=== PATIENT | female | born 1955 | race Asian ===

== ENCOUNTER → 2020-07-16 | Outpatient (CLI) | payer OTHER ==
[~2020-07-16] MED LIST: CA/D1TAB7 PO; CETI1TAB6 PO; CHOL400T10 PO; LIDOCAINE 1%, 20ML ONE; LOSA50TA14 PO; OMEG1CAP24 PO; ROSU20TA2 PO; SIMV10TA18 PO; SODIUM BICARBONATE 4.2%, 5ML ONE; TELM1TAB28 PO; VITA150T PO
== END | disposition home or self-care (01) ==
LOC: CFH 09:01
PROVIDERS: ATTEND Surgery
DX: C50.111 Malignant neoplasm of central portion of right female breast (principal); I10 Essential (primary) hypertension; E78.5 Hyperlipidemia, unspecified; Z79.899 Other long term (current) drug therapy; Z90.89 Acquired absence of other organs; Z90.721 Acquired absence of ovaries, unilateral; Z82.49 Family history of ischemic heart disease and other diseases of the circulatory system
CPT/HCPCS: 19285; 77065; J3490

== ENCOUNTER 2020-07-19 08:00 | Outpatient (CLI) | payer OTHER ==
[~2020-07-19 08:00] MED LIST changes: -LIDOCAINE 1%, 20ML ONE; -OMEG1CAP24 PO; -ROSU20TA2 PO; -SODIUM BICARBONATE 4.2%, 5ML ONE; -TELM1TAB28 PO
[2020-07-19] MEDS ORDERED: OMEG1CAP24 PO (11:39)
[2020-07-19] MEDS ORDERED: TELM1TAB28 PO (11:39)
[2020-07-19] MEDS ORDERED: ROSU20TA2 PO (11:39)
== END 2020-07-19 23:59 | disposition home or self-care (01) ==
LOC: STAR 08:00
PROVIDERS: ATTEND Surgery
DX: Z01.812 Encounter for preprocedural laboratory examination (principal); U07.1 COVID-19; C50.111 Malignant neoplasm of central portion of right female breast
CPT/HCPCS: 36415; 80053; 87635; 93005

== ENCOUNTER → 2020-08-06 | Outpatient (CLI) | payer OTHER ==
[~2020-08-06] MED LIST changes: +OMEG1CAP24 PO; +ROSU20TA2 PO; +TELM1TAB28 PO
== END | disposition home or self-care (01) ==
LOC: STAR 09:54
PROVIDERS: ATTEND Anesthesiology
DX: Z20.828 Contact with and (suspected) exposure to other viral communicable diseases (principal)
CPT/HCPCS: 87635

== ENCOUNTER 2020-08-12 09:13 | Day surgery (SDC) | payer OTHER ==
[~2020-08-12] VITALS: Ht 157.5 cm; Wt 75.3 kg
[~2020-08-12 09:13] MED LIST changes: +BUPIVACAINE/PF 0.5% ONE; +EPINEPHRINE 1 MG/ML, 1ML ONE; +ISOSULFAN BLUE 10 MG/ML, 5ML IV ONE
[2020-08-12 09:43] VITALS: BP 119/79
[2020-08-12] MEDS ORDERED: CHLORHEXIDINE 15 ML UDC MM ONE (10:00)
[2020-08-12] MEDS ORDERED: LACTATED RINGERS 1,000 ML IV SCH (10:00)
[2020-08-12] MEDS ORDERED: ONDANSETRON 2MG/ML, 2ML ONE (11:18)
[2020-08-12] MEDS ORDERED: PHENYLEPHRINE 10 MG/ML ONE (11:18)
[2020-08-12] MEDS ORDERED: MIDAZOLAM 1 MG/ML, 2ML ONE (11:18)
[2020-08-12] MEDS ORDERED: DEXAMETHASONE 4 MG/ML, 1ML ONE (11:18)
[2020-08-12] MEDS ORDERED: PROPOFOL 10 MG/ML, 20ML ONE (11:18)
[2020-08-12] MEDS ORDERED: FENTANYL PF 100 MCG/2ML ONE (11:18)
[2020-08-12] MEDS ORDERED: CEFAZOLIN 1,000 MG ONE (11:18)
[2020-08-12] MEDS ORDERED: GLYCOPYRROLATE 0.2MG/1ML, 5ML ONE (11:18)
[2020-08-12] MEDS ORDERED: ROCURONIUM 10 MG/ML,10ML ONE (11:18)
[2020-08-12] MEDS ORDERED: NEOSTIGMINE 1 MG/ML, 10ML ONE (11:18)
[2020-08-12] MEDS ORDERED: morphine SULFATE 10 MG/ML, 1ML IVPush PRN (11:30)
[2020-08-12] MEDS ORDERED: HALOPERIDOL 5 MG/ML IV PRN (11:30)
[2020-08-12] MEDS ORDERED: hydrALAzine 20 MG/ML, 1ML IV PRN (11:30)
[2020-08-12] MEDS ORDERED: MEPERIDINE/PF 25MG/0.5ML IVPush PRN (11:30)
[2020-08-12] MEDS ORDERED: LABETALOL 5MG/ML, 20ML IV PRN (11:30)
[2020-08-12] MEDS ORDERED: HYDROmorphone 1 MG/ML, 1ML INJ IVPush PRN (11:30)
[2020-08-12] MEDS ORDERED: FENTANYL PF 100 MCG/2ML IV PRN (11:30)
[2020-08-12] MEDS ORDERED: OXYcodone 5 MG/5 ML ORAL.SOL UDC PO PRN (11:30)
[2020-08-12] MEDS ORDERED: ACETAMINOPHEN 325 MG TABLET PO PRN (11:30)
[2020-08-12] MEDS ORDERED: PROMETHAZINE 25 MG/ML, 1ML IVPush PRN (11:30)
[2020-08-12] MEDS ORDERED: BUPIVACAINE/PF-EPI 0.5% 1:200K INFIL ONE (11:43)
== END 2020-08-12 14:55 | disposition home or self-care (01) ==
LOC: OUT 09:13
PROVIDERS: ATTEND Surgery
DX: C50.111 Malignant neoplasm of central portion of right female breast (principal); I10 Essential (primary) hypertension; E78.5 Hyperlipidemia, unspecified; Z17.0 Estrogen receptor positive status [ER+]; Z79.899 Other long term (current) drug therapy; Z86.19 Personal history of other infectious and parasitic diseases
CPT/HCPCS: 19301; 38525; 38792; 76098; 88305; 88307; 88329; A9541; J0171; J0690; J1100; J2250; J2370; J2405; J2704; J2710; J3010; J7120

== ENCOUNTER → 2020-09-03 | Outpatient (CLI) | payer OTHER ==
[~2020-09-03] MED LIST changes: -BUPIVACAINE/PF 0.5% ONE; -EPINEPHRINE 1 MG/ML, 1ML ONE; -ISOSULFAN BLUE 10 MG/ML, 5ML IV ONE
== END | disposition home or self-care (01) ==
LOC: ROC 07:41
PROVIDERS: ATTEND Radiology Radiation Oncology
DX: C50.511 Malignant neoplasm of lower-outer quadrant of right female breast (principal); I10 Essential (primary) hypertension; E78.5 Hyperlipidemia, unspecified; Z17.0 Estrogen receptor positive status [ER+]; Z79.899 Other long term (current) drug therapy; Z90.721 Acquired absence of ovaries, unilateral
CPT/HCPCS: 99214; G0463

== ENCOUNTER 2020-11-04 07:30 | Outpatient (CLI) | payer OTHER ==
[~2020-11-04 07:30] MED LIST changes: -TELM1TAB28 PO; +TELM1TAB36 PO
== END 2020-11-04 23:59 | disposition home or self-care (01) ==
LOC: ROC 07:30
PROVIDERS: ATTEND Radiology Radiation Oncology
DX: Z08 Encounter for follow-up examination after completed treatment for malignant neoplasm (principal); Z85.3 Personal history of malignant neoplasm of breast; E78.5 Hyperlipidemia, unspecified; I10 Essential (primary) hypertension; Z17.0 Estrogen receptor positive status [ER+]; Z79.899 Other long term (current) drug therapy
CPT/HCPCS: 99213; G0463

== ENCOUNTER → 2021-02-07 | Outpatient (CLI) | payer OTHER | END | disposition home or self-care (01) | LOC: CFH 09:39 | PROVIDERS: ATTEND Radiology Radiation Oncology | DX: C50.511 Malignant neoplasm of lower-outer quadrant of right female breast (principal) | CPT/HCPCS: 77061; 77065; G0279 ==

== ENCOUNTER 2021-05-11 12:01 | Outpatient (CLI) | payer OTHER | END 2021-05-11 23:59 | disposition home or self-care (01) | LOC: ROC 12:01 | PROVIDERS: ATTEND Radiology Radiation Oncology | DX: Z08 Encounter for follow-up examination after completed treatment for malignant neoplasm (principal); Z85.3 Personal history of malignant neoplasm of breast | CPT/HCPCS: 99212; G0463 ==